=== PATIENT | male | born 1970 | race Caucasian/White ===

== ENCOUNTER → 2018-02-23 15:18 | Outpatient (CLI) | payer MEDICARE, SELFPAY ==
[2018-02-23 16:59] LABS: Hemoglobin A1C% w Est Avg Glu 8.8 % (4.0-6.0)
[2018-02-23 17:30] LABS: Alanine Aminotransferase 52 IU/L (21-72); Albumin 4.2 g/dL (3.5-5.0); Albumin Globulin Ratio 1.8 (1.0-2.8); Alkaline Phosphatase 50 U/L (38-126); Aspartate Aminotransferase 38 IU/L (17-59); BUN Creatinine Ratio 12.7 (6-22); Bilirubin Total 0.4 mg/dL (0.2-1.3); Blood Urea Nitrogen 14 mg/dL (9-20); Calcium 9.4 mg/dL (8.4-10.2); Carbon Dioxide 28 mmol/L (22-32); Chloride 100 mmol/L (98-107); Cholesterol 123 mg/dL (140-199); Estimated Glomerular Filt Rate > 60.0 mL/min (>60); Globulin 2.3 g/dL (1.7-4.1); Glucose 191 mg/dL (70-100); HDL Cholesterol 45 mg/dL (40-60); HEMOLYSIS < 15 (0-50); LDL Cholesterol Calculated 46 mg/dL (<100); Potassium 4.9 mmol/L (3.4-5.1); Sodium 138 mmol/L (137-145); Total Protein 6.5 g/dL (6.3-8.2); Triglycerides 158 mg/dL (35-150)
== END ==
PROVIDERS: Visit Provider Internal Medicine
DX: E10.65 Type 1 diabetes mellitus with hyperglycemia (principal); I10 Essential (primary) hypertension; G89.4 Chronic pain syndrome; E10.40 Type 1 diabetes mellitus with diabetic neuropathy, unspecified
CPT/HCPCS: 36415; 80053; 80061; 83036

== ENCOUNTER 2019-01-21 17:05 | Inpatient (IN) | payer MEDICARE, MEDICAID, SELFPAY ==
[2019-01-21] VITALS (12 sets, daily range): BP systolic 79–147; BP diastolic 42–71; PULSE 78–102; RESP 16–22; TEMP 35.9–37.2; O2SAT 98–100; BMI 20.9; BMI 20.2
[2019-01-21] MEDS: ONDANSETRON 4 MG/2 ML INJ IV ×2 (17:30→21:01)
[2019-01-21] MEDS: SODIUM CHLORIDE 0.9% 1,000 ML 1000 ML IV ×2 (17:31→18:35)
[2019-01-21 17:47] LABS: Add Manual Diff / Slide Review NO; Basophils Absolute Auto 0 /uL (0-100); Basophils Percent Auto 0.2 % (0-2); Eosinophils Absolute Auto 0 /uL (0-450); Hematocrit 40.1 % (41-53); Lymphocytes Absolute Auto 700 /uL (1100-4500); Lymphocytes Percent Auto 5.3 % (25-40); Mean Corpuscular HGB Conc 32.5 % (30-36); Mean Corpuscular Hemoglobin 31.3 PG (26-34); Mean Corpuscular Volume 96.2 fL (80-100); Monocytes Absolute Auto 900 /uL (0-900); Neutrophils Absolute Auto 11400 /uL (1500-7000); Neutrophils Percent Auto 87.5 % (50-75); Platelet Count 183 X10^3/uL (150-400); Red Blood Cell Count 4.17 X10^6/uL (4.5-5.9); Red Cell Distribution Width 13.7 % (11.6-14.8)
[2019-01-21] MEDS: LORazepam 2 MG/ML INJ 0.5 MG IV ×2 (17:49→22:40)
[2019-01-21 17:52] LABS: Prothrombin Time 12.1 SECONDS (10.1-12.7)
[2019-01-21 17:55] LABS: PTT Partial Thromboplastin Tim 27 SECONDS (26.4-36.2)
[2019-01-21 18:01] LABS: Alanine Aminotransferase 33 IU/L (21-72); Albumin 4.2 g/dL (3.5-5.0); Albumin Globulin Ratio 1.6 (1.0-2.8); Alkaline Phosphatase 55 U/L (38-126); Aspartate Aminotransferase 34 IU/L (17-59); BUN Creatinine Ratio 21.8 (6-22); Bilirubin Total 0.7 mg/dL (0.2-1.3); Blood Urea Nitrogen 24 mg/dL (9-20); Calcium 9.9 mg/dL (8.4-10.2); Carbon Dioxide 20 mmol/L (22-32); Chloride 104 mmol/L (98-107); Estimated Glomerular Filt Rate > 60.0 mL/min (>60); Globulin 2.6 g/dL (1.7-4.1); Glucose 300 mg/dL (70-100); HEMOLYSIS 45 (0-50); Potassium 4.6 mmol/L (3.4-5.1); Sodium 141 mmol/L (137-145); Total Protein 6.8 g/dL (6.3-8.2)
[2019-01-21 18:03] LABS: Lipase < 10 U/L (23-300)
--- NOTE | 2019-01-21 18:08 | ED_ITS ---
HPI - General Adult General Chief complaint: Diabetic Problem Stated complaint: type 1 diabetic complications Time Seen by Provider: 01/21/19 17:31 Source: patient and family Mode of arrival: ambulatory Limitations: no limitations History of Present Illness HPI narrative: Patient is a 48-year-old male. He is a type 1 diabetic. Patient was very unwilling to participate and much of the history taking. He stated t hat he was ?not in the mood ?to answer many of my questions. He did state that he was having abdominal pain and vomiting and dry heaving. Apparently this has been going on for the past couple days however again patient was unable to provide a specific time frame. He denies any chest pain or headaches. He stated that he has not been taking his insulin over the past couple days. Is unable to give a reason why other than he has not been feeling well. Unable to obtain much more of a history from the patient. Related Data Home Medications Medication Instructions Recorded Confirmed LISINOPRIL (Zestril / Prinivil) 0 PO *UK DOSE/FREQUENCY #0 06/04/07 insulin aspart U-100 [Novolog units SQ * UK DOSE/FREQUENCY #0 06/04/07 Flexpen U-100 Insulin] rosuvastatin 10 mg PO DAILY #0 06/04/07 01/21/19 insulin glargine [Lantus U-100 29 unit SUBCUT DAILY 01/21/19 01/21/19 Insulin] oxycodone 5 mg PO Q4-6H PRN 01/21/19 01/21/19 pregabalin [Lyrica] 150 mg PO BID 01/21/19 01/21/19 Allergies Allergy/AdvReac Type Severity Reaction Status Date / Time No Known Drug Allergies Allergy Verified 01/21/19 17:10 Review of Systems Constitutional Denies headache(s) ENT Ears, Nose, Mouth, and Throat: Denies headache(s) Cardiovascular Denies chest pain and Denies dyspnea Respiratory Denies dyspnea Gastrointestinal Gastrointestinal: Reports abdominal pain, Reports nausea and Reports vomiting Genitourinary Denies dysuria Musculoskeletal Denies arthralgias Integumentary/Breasts Denies rash Neurologic Denies headache(s) [facility] Medical History Absence, lung lobe (Acute) Cataract (Acute) Cervical spine fracture (Acute) Chronic constipation (Acute) Hyperlipidemia (Acute) Hypertension (Acute) 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) Retinopathy (Acute) Thoracic compression fracture (Acute) Type 1 diabetes (Acute) Social History household members: family Smoking Status: Former smoker alcohol intake: never Social History household members: family Smoking Status: Former smoker alcohol intake: never Exam Initial Vital Signs Initial Vital Signs: Vital Signs Temperature 96.7 F L 01/21/19 17:10 Pulse Rate 102 H 01/21/19 17:10 Respiratory Rate 22 01/21/19 17:10 Pulse Oximetry 98 01/21/19 17:10 Const General: ill appearing Nutritional Appearance: cachectic Orientation: alert, awake, oriented to person and oriented to place HENMT Head: normal to inspection and normocephalic Resp Effort & Inspection: normal respiratory effort Auscultation: clear to auscultation bilaterally Cardio Rate: regular rate Rhythm: regular rhythm Pulses: radial pulses present GI Inspection: non-distended Palpation: soft and tender (Diffusely tender) Skin Lesions: no lesions Rashes: no rashes Neuro General: alert and awake Cognition: normal cognition Extrem General: capillary refill normal and No edema Psych Appearance: disheveled Speech and Movement: agitated and restless Attitude: not cooperative Scores GCS Javier coma scale eye opening: Spontaneous [place] coma scale verbal response: Orientated Javier coma scale motor response: Obey commands [place] coma scale total score: 15 Course Orders Ordered: ED Orders 01/21/19 17:15 EKG-12 Lead Stat 01/21/19 17:35 Complete Blood Count AUTO DIFF Stat Comprehensive Metabolic Panel Stat Ketones (Beta-Hydroxybutyrate) Stat Lipase Stat Partial Thromboplastin Time Stat Procalcitonin Urgent Prothrombin Time INR Stat 01/21/19 17:44 Arterial Blood Gas Stat 01/21/19 17:56 Arterial Blood Gas Stat 01/21/19 18:00 Lactate (Lactic Acid) Stat Magnesium Stat Phosphorous Stat 01/21/19 18:43 CT abdomen pelvis w con Stat 01/21/19 21:41 Consult to Dietitian, Adult Routine Consult to Discharge Planning Routine 01/21/19 22:25 Consult to Physical Therapy Evaluate & Treat 01/21/19 23:06 Basic Metabolic Panel Urgent Magnesium Urgent Phosphorous Urgent 01/22/19 05:00 Basic Metabolic Panel Routine Complete Blood Count AUTO DIFF Routine Bisacodyl (Dulcolax) 10 mg VT DAILY PRN PRN Reason: Constipation Dextrose (D50w) 25 gm IV PRN PRN; Protocol PRN Reason: Hypoglycemia Docusate Sodium (Colace) 100 mg PO BID [facility] Enoxaparin Sodium (Lovenox) 40 mg SUBCUT DAILY [facility] Hydromorphone HCl (Dilaudid) 0.5 mg IV Q6H PRN PRN Reason: Pain, Moderate (4-6) Last Admin: 01/21/19 22:29 Dose: 0.5 mg Sodium Chloride (Normal Saline 0.9%) 1,000 mls @ 150 mls/hr IV CONT [facility] Last Infusion: 01/21/19 23:13 Dose: 0 mls/hr Admin: 01/21/19 22:41 Dose: 150 mls/hr Insulin Aspart (Novolog Flexpen) 0 unit SUBCUT ACHS [facility]; Protocol Last Admin: 01/21/19 22:26 Dose: 4 unit Insulin Glargine (Lantus Solostar (Pen)) 29 unit SUBCUT BEDTIME [facility] Last Admin: 01/21/19 22:43 Dose: 29 unit Lorazepam (Ativan) 0.5 mg IV Q4HR PRN PRN Reason: Nausea Last Admin: 01/21/19 22:40 Dose: 0.5 mg Metoclopramide HCl (Reglan) 10 mg IV Q6HR [facility] Last Admin: 01/22/19 00:15 Dose: 10 mg Naloxone HCl (Narcan) 0.2 mg IV Q2MIN PRN PRN Reason: Opiate Reversal Ondansetron HCl (Zofran) 4 mg IV Q8HR PRN PRN Reason: Nausea And Vomiting Pantoprazole Sodium (Protonix) 20 mg IV BID [facility] Last Admin: 01/21/19 22:25 Dose: 20 mg Discontinued Medications Hydromorphone HCl (Dilaudid) 1 mg IV NOW ONE Stop: 01/21/19 18:46 Last Admin: 01/21/19 18:49 Dose: 1 mg Sodium Chloride (Normal Saline 0.9%) 1,000 mls @ 1,000 mls/hr IV BOLUS ONE Stop: 01/21/19 18:28 Last Infusion: 01/21/19 18:23 Dose: 0 mls/hr Admin: 01/21/19 17:31 Dose: 1,000 mls/hr Sodium Chloride (Normal Saline 0.9%) 1,000 mls @ 1,000 mls/hr IV BOLUS ONE Stop: 01/21/19 19:31 Last Infusion: 01/21/19 19:17 Dose: 0 mls/hr Admin: 01/21/19 18:35 Dose: 1,000 mls/hr Sodium Chloride (Normal Saline 0.9%) 1,000 mls @ 125 mls/hr IV CONT JUSTIN Last Infusion: 01/21/19 21:51 Dose: 150 mls/hr Admin: 01/21/19 19:20 Dose: 125 mls/hr Insulin Glargine (Lantus Solostar (Pen)) 29 unit SUBCUT BEDTIME [facility] Lorazepam (Ativan) 0.5 mg IV NOW ONE Stop: 01/21/19 17:45 Last Admin: 01/21/19 17:49 Dose: 0.5 mg Metoclopramide HCl (Reglan) 10 mg IV NOW ONE Stop: 01/21/19 18:35 Last Admin: 01/21/19 18:39 Dose: 10 mg Metoclopramide HCl (Reglan) 10 mg IV Q8HR PRN PRN Reason: Nausea And Vomiting Ondansetron HCl (Zofran) 4 mg IV NOW ONE Stop: 01/21/19 17:30 Last Admin: 01/21/19 17:30 Dose: 4 mg Ondansetron HCl (Zofran) 4 mg IV NOW ONE Stop: 01/21/19 21:00 Last Admin: 01/21/19 21:01 Dose: 4 mg Vital Signs - 8 hr 01/21/19 18:00 01/21/19 19:00 01/21/19 19:30 Temperature Pulse Rate 79 83 84 Respiratory Rate 19 16 16 Blood Pressure Blood Pressure [Right Arm] 79/64 L 142/71 H 117/42 L Pulse Oximetry 100 100 100 01/21/19 20:00 01/21/19 20:49 01/21/19 21:00 Temperature Pulse Rate 86 94 H 90 Respiratory Rate 17 18 18 Blood Pressure Blood Pressure [Right Arm] 114/45 L 111/46 L 122/47 L Pulse Oximetry 100 98 100 01/21/19 21:50 01/21/19 21:52 01/21/19 23:10 Temperature 98.0 F 99.0 F Pulse Rate 86 87 Respiratory Rate 20 18 Blood Pressure 105/57 L 123/53 L Blood Pressure [Right Arm] Pulse Oximetry 98 98 100 01/21/19 23:42 Temperature Pulse Rate Respiratory Rate Blood Pressure Blood Pressure [Right Arm] Pulse Oximetry 100 Medical Decision Making Lab Data Lab results reviewed: Yes I reviewed the patient's lab results. Result diagrams: 01/21/19 17:35 01/21/19 23:06 Lab Results 01/21/19 01/21/19 01/21/19 Range/Units 17:35 17:35 17:35 WBC 13.0 H (4.5-11.0) X10^3/uL RBC 4.17 L (4.5-5.9) X10^6/uL Hgb 13.0 L (13.5-17.5) g/dL Hct 40.1 L (41-53) % MCV 96.2 (80-100) fL MCH 31.3 (26-34) PG MCHC 32.5 (30-36) % RDW 13.7 (11.6-14.8) % Plt Count 183 (150-400) X10^3/uL Neut % (Auto) 87.5 H (50-75) % Lymph % (Auto) 5.3 L (25-40) % Newton % (Auto) 7.0 (3-14) % Eos % (Auto) 0.0 L (2-4) % Baso % (Auto) 0.2 (0-2) % Neut # (Auto) 54646 H (2834-3624) /uL Lymph # (Auto) 700 L (8038-0767) /uL Newton # (Auto) 900 (0-900) /uL Eos # (Auto) 0 (0-450) /uL Baso # (Auto) 0 (0-100) /uL PT 12.1 (10.1-12.7) SECONDS INR 1.0 (0.9-1.3) APTT 27 (26.4-36.2) SECONDS ABG pH (7.35-7.45) ABG pCO2 (35-45) mmHg ABG pO2 (80-100) mmHg ABG HCO3 (22-26) mmol/L ABG Total CO2 (21-31) mmol/L ABG O2 Saturation (95-100) % ABG Base Excess (-2-2) mmol/L FiO2 Sodium 141 (137-145) mmol/L Potassium 4.6 (3.4-5.1) mmol/L Chloride 104 (98-107) mmol/L Carbon Dioxide 20 L (22-32) mmol/L BUN 24 H (9-20) mg/dL Creatinine 1.10 (0.66-1.25) mg/dL Estimated GFR > 60.0 (>60) mL/min BUN/Creatinine Ratio 21.8 (6-22) Glucose 300 H (70-100) mg/dL Lactate (0.7-2.1) mmol/L Calcium 9.9 (8.4-10.2) mg/dL Phosphorus (2.5-4.5) mg/dL Magnesium (1.6-2.3) mg/dL Total Bilirubin 0.7 (0.2-1.3) mg/dL AST 34 (17-59) IU/L ALT 33 (21-72) IU/L Alkaline Phosphatase 55 (38-126) U/L Total Protein 6.8 (6.3-8.2) g/dL Albumin 4.2 (3.5-5.0) g/dL Globulin 2.6 (1.7-4.1) g/dL Albumin/Globulin Ratio 1.6 (1.0-2.8) Lipase < 10 L (23-300) U/L Procalcitonin (<0.5) ng/mL Ketones (<0.27) mmol/L 01/21/19 01/21/19 01/21/19 Range/Units 17:35 17:35 17:56 WBC (4.5-11.0) X10^3/uL RBC (4.5-5.9) X10^6/uL Hgb (13.5-17.5) g/dL Hct (41-53) % MCV (80-100) fL MCH (26-34) PG MCHC (30-36) % RDW (11.6-14.8) % Plt Count (150-400) X10^3/uL Neut % (Auto) (50-75) % Lymph % (Auto) (25-40) % [place] % (Auto) (3-14) % Eos % (Auto) (2-4) % Baso % (Auto) (0-2) % Neut # (Auto) (2763-6527) /uL Lymph # (Auto) (8699-0425) /uL Newton # (Auto) (0-900) /uL Eos # (Auto) (0-450) /uL Baso # (Auto) (0-100) /uL PT (10.1-12.7) SECONDS INR (0.9-1.3) APTT (26.4-36.2) SECONDS ABG pH 7.39 (7.35-7.45) ABG pCO2 28.5 L (35-45) mmHg ABG pO2 107 H (80-100) mmHg ABG HCO3 17 L (22-26) mmol/L ABG Total CO2 18 L (21-31) mmol/L ABG O2 Saturation 98 (95-100) % ABG Base Excess -8.0 L (-2-2) mmol/L FiO2 21 Sodium (137-145) mmol/L Potassium (3.4-5.1) mmol/L Chloride (98-107) mmol/L Carbon Dioxide (22-32) mmol/L BUN (9-20) mg/dL Creatinine (0.66-1.25) mg/dL Estimated GFR (>60) mL/min BUN/Creatinine Ratio (6-22) Glucose (70-100) mg/dL Lactate (0.7-2.1) mmol/L Calcium (8.4-10.2) mg/dL Phosphorus (2.5-4.5) mg/dL Magnesium (1.6-2.3) mg/dL Total Bilirubin (0.2-1.3) mg/dL AST (17-59) IU/L ALT (21-72) IU/L Alkaline Phosphatase (38-126) U/L Total Protein (6.3-8.2) g/dL Albumin (3.5-5.0) g/dL Globulin (1.7-4.1) g/dL Albumin/Globulin Ratio (1.0-2.8) Lipase (23-300) U/L Procalcitonin 0.98 H (<0.5) ng/mL Ketones 3.62 H (<0.27) mmol/L 01/21/19 01/21/19 01/21/19 Range/Units 18:00 18:00 20:40 WBC (4.5-11.0) X10^3/uL RBC (4.5-5.9) X10^6/uL Hgb (13.5-17.5) g/dL Hct (41-53) % MCV (80-100) fL MCH (26-34) PG MCHC (30-36) % RDW (11.6-14.8) % Plt Count (150-400) X10^3/uL Neut % (Auto) (50-75) % Lymph % (Auto) (25-40) % Newton % (Auto) (3-14) % Eos % (Auto) (2-4) % Baso % (Auto) (0-2) % Neut # (Auto) (8452-0183) /uL Lymph # (Auto) (8847-2878) /uL Newton # (Auto) (0-900) /uL Eos # (Auto) (0-450) /uL Baso # (Auto) (0-100) /uL PT (10.1-12.7) SECONDS INR (0.9-1.3) APTT (26.4-36.2) SECONDS ABG pH (7.35-7.45) ABG pCO2 (35-45) mmHg ABG pO2 (80-100) mmHg ABG HCO3 (22-26) mmol/L ABG Total CO2 (21-31) mmol/L ABG O2 Saturation (95-100) % ABG Base Excess (-2-2) mmol/L FiO2 Sodium (137-145) mmol/L Potassium (3.4-5.1) mmol/L Chloride (98-107) mmol/L Carbon Dioxide (22-32) mmol/L BUN (9-20) mg/dL Creatinine (0.66-1.25) mg/dL Estimated GFR (>60) mL/min BUN/Creatinine Ratio (6-22) Glucose (70-100) mg/dL Lactate 3.5 H 1.6 (0.7-2.1) mmol/L Calcium (8.4-10.2) mg/dL Phosphorus 2.8 (2.5-4.5) mg/dL Magnesium 1.6 (1.6-2.3) mg/dL Total Bilirubin (0.2-1.3) mg/dL AST (17-59) IU/L ALT (21-72) IU/L Alkaline Phosphatase (38-126) U/L Total Protein (6.3-8.2) g/dL Albumin (3.5-5.0) g/dL Globulin (1.7-4.1) g/dL Albumin/Globulin Ratio (1.0-2.8) Lipase (23-300) U/L Procalcitonin (<0.5) ng/mL Ketones (<0.27) mmol/L 01/21/ Range/Units 23:06 WBC (4.5-11.0) X10^3/uL RBC (4.5-5.9) X10^6/uL Hgb (13.5-17.5) g/dL Hct (41-53) % MCV (80-100) fL MCH (26-34) PG MCHC (30-36) % RDW (11.6-14.8) % Plt Count (150-400) X10^3/uL Neut % (Auto) (50-75) % Lymph % (Auto) (25-40) % Newton % (Auto) (3-14) % Eos % (Auto) (2-4) % Baso % (Auto) (0-2) % Neut # (Auto) (2849-1204) /uL Lymph # (Auto) (3719-2941) /uL Newton # (Auto) (0-900) /uL Eos # (Auto) (0-450) /uL Baso # (Auto) (0-100) /uL PT (10.1-12.7) SECONDS INR (0.9-1.3) APTT (26.4-36.2) SECONDS ABG pH (7.35-7.45) ABG pCO2 (35-45) mmHg ABG pO2 (80-100) mmHg ABG HCO3 (22-26) mmol/L ABG Total CO2 (21-31) mmol/L ABG O2 Saturation (95-100) % ABG Base Excess (-2-2) mmol/L FiO2 Sodium 141 (137-145) mmol/L Potassium 4.4 (3.4-5.1) mmol/L Chloride 107 (98-107) mmol/L Carbon Dioxide 17 L (22-32) mmol/L BUN 23 H (9-20) mg/dL Creatinine 1.00 (0.66-1.25) mg/dL Estimated GFR > 60.0 (>60) mL/min BUN/Creatinine Ratio 23.0 H (6-22) Glucose 351 H (70-100) mg/dL Lactate (0.7-2.1) mmol/L Calcium 9.1 (8.4-10.2) mg/dL Phosphorus 3.3 (2.5-4.5) mg/dL Magnesium 1.5 L (1.6-2.3) mg/dL Total Bilirubin (0.2-1.3) mg/dL AST (17-59) IU/L ALT (21-72) IU/L Alkaline Phosphatase (38-126) U/L Total Protein (6.3-8.2) g/dL Albumin (3.5-5.0) g/dL Globulin (1.7-4.1) g/dL Albumin/Globulin Ratio (1.0-2.8) Lipase (23-300) U/L Procalcitonin (<0.5) ng/mL Ketones (<0.27) mmol/L Point of Care Testing Glucose POC 279 Urine Dip Bedside Urine Glucose 500 mg/dl Bedside Urine Bilirubin - Negative Bedside Urine Ketone +++ 80 Urine Specific [place] 1.020 Bedside Urine Occult Blood +/- Bedside Urine pH 5.5 Bedside Urine Protein - Negative Bedside Urine Urobilinogen +/- 1mg Bedside Urine Nitrite - Negative Bedside Urine Leukocytes - Negative Esterase Point of care testing: Point of Care Testing Glucose POC 279 Urine Dip Bedside Urine Glucose 500 mg/dl Bedside Urine Bilirubin - Negative Bedside Urine Ketone +++ 80 Urine Specific [place] 1.020 Bedside Urine Occult Blood +/- Bedside Urine pH 5.5 Bedside Urine Protein - Negative Bedside Urine Urobilinogen +/- 1mg Bedside Urine Nitrite - Negative Bedside Urine Leukocytes - Negative Esterase Imaging Data CT scan - abdomen: Radiologist's impression: in the mood ? MDM Narrative Medical decision making narrative: Patient with diffuse abdominal pain. The CT scan showed no acute pathology. Patient is not acidotic on the ABG. Does have ketones in is hyperglycemic. Was given multiple doses of nausea medication here in the ER. Has an anion gap of 17. His blood sugar did improve with just fluids. He was not given any insulin here in the ER. Upon further questioning with his parents were bedside it does appear that he has been on long-standing opioids and potentially has not had for the past couple days. His symptoms could potentially be opioid withdrawal. Also appears that he has not had marijuana in the past couple days which she normally smokes what sounds like on a regular basis. There is some question is whether not he has had a history of gastroparesis in the past. Do feel given his social situation and his presentation today that if he was discharged on oral nausea medication that he would return in cash DKA. I do feel that admission to the hospital for fluids and symptom control as needed. Discussed the case with RAQUEL Castle the night hospitalist will admit for further evaluation and treatment. Discussed the admission with the family. They expressed understanding and agreement. Discharge Plan Departure Patient Disposition: Admitted as Observation Clinical Impression: Hyperglycemia, Ketosis Abdominal pain Qualifiers: Abdominal location: generalized Qualified Code(s): R10.84 - Generalized abdominal pain Vomiting Qualifiers: Vomiting type: unspecified Vomiting Intractability: unspecified Nausea presence: with nausea Qualified Code(s): R11.2 - Nausea with vomiting, unspecified Discharge Date/Time: 01/21/19 21:34 Interventions: ED Discharge Assessment Last Done: 01/21/19 21:34 Admit Date/Time: 01/21/19 21:29 Admit Provider: Storm Castle
[2019-01-21 18:13] LABS: Fractionated Inspired Oxygen 21; HCO3 ABG 17 mmol/L (22-26); Oxygen Saturation ABG 98 % (95-100); PCO2 ABG 28.5 mmHg (35-45); PO2 ABG 107 mmHg (80-100); TCO2 ABG 18 mmol/L (21-31); pH ABG 7.39 (7.35-7.45)
--- NOTE | 2019-01-21 18:15 | RT ---
G drawn without complications, and hand delivered to Dr. Sun at 0080
[2019-01-21 18:17] LABS: Lactate (Lactic Acid) 3.5 mmol/L (0.7-2.1)
[2019-01-21 18:18] LABS: Ketones (Beta-Hydroxybutyrate) 3.62 mmol/L (<0.27)
[2019-01-21 18:19] LABS: Magnesium 1.6 mg/dL (1.6-2.3); Phosphorous 2.8 mg/dL (2.5-4.5)
[2019-01-21] MEDS: METOCLOPRAMIDE 10 MG/2 ML INJ IV (18:39)
--- NOTE | 2019-01-21 18:43 | DI.CT.S_ITS ---
PROCEDURE: CT ABDOMEN PELVIS W CON INDICATIONS: generalized abd pain TECHNIQUE: After the administration of intravenous contrast, 5 mm thick sections acquired from the diaphragm to the symphysis. 5 mm coronal and sagittal reformats were acquired. For radiation dose reduction, the following was used: automated exposure control, adjustment of mA and/or kV according to patient size. COMPARISON: [facility], , CHEST 2 VIEW, 06/05/2007, 18:02. FINDINGS: Image quality: Excellent. ABDOMEN: Lung bases: Postoperative changes are present at the right lung base. The lung bases are otherwise clear. Solid organs: Liver is normal in size and enhancement. Gallbladder is unremarkable. Biliary system is non dilated. Pancreas enhances normally. Spleen is normal in size and enhancement. No adrenal nodules. Kidneys demonstrate normal size and enhancement, without hydronephrosis. Peritoneum and bowel: Bowel loops demonstrate normal wall thickness and caliber. The appendix is thin walled and gas filled. No free fluid or air. Nodes and vessels: No retroperitoneal or mesenteric adenopathy by size criteria. Aorta and inferior vena cava are normal in size. There are scattered atheromatous calcifications throughout the aorta and iliac arteries bilaterally. Miscellaneous: No ventral hernias. PELVIS: Genitourinary: Bladder wall thickness is normal. Miscellaneous: No inguinal hernias or adenopathy. Bones: No suspicious bony lesions. Compression deformities are present at T11 and T12 with 38 and 57% vertebral body height loss, respectively. These are unchanged when compared to plain film dated 06/05/07. IMPRESSION: 1. No acute intra-abdominal findings. Normal appendix. 2. Compression deformities at T11 and T12 Dictated by: Britany Childs M.D. on 01/21/2019 at 19:58 Approved by: Britany Childs M.D. on 01/21/2019 at 20:04
[2019-01-21] MEDS: HYDROMORPHONE 1 MG INJ IV (18:49)
[2019-01-21] MEDS: SODIUM CHLORIDE 0.9% 1,000 ML 125 ML IV (19:20)
[2019-01-21 20:02] LABS: Reflexed Lactate in 2 Hours Y
[2019-01-21 20:58] LABS: Lactate 2HR (Lactic Acid Rflx) 1.6 mmol/L (0.7-2.1)
--- NOTE | 2019-01-21 21:45 | PC.ADMIT ---
Addendum entered by Dali Dunlap R.N. 01/21/19 23:01: 2145 Admitted to from ER. Transferred via stretcher, pivot transfer to bed. A/O, abdominal pain /10. Frequent dry heaves, scant emesis. Reports this has been going on for a couple days. Unable to remember all medication doses, mom is supposed to call to verify. Oriented to room/call light. SCDs applied. IV to left hand saline locked/flushes well. IV to RAC infusing w/o complications. Original Note: 2144 Admission Note: Pt to acute care from ER. Transferred via NO [id number] [facility] The patient,Mahesh Chow,48 y/o, was given written information regarding hospital policies, unit procedures and contact persons. Patient's smoking status: Former smoker. Vital Signs - 8 hr 01/21/19 17:10 01/21/19 17:43 01/21/19 18:00 Temperature 96.7 F L Pulse Rate 102 H 78 79 Respiratory Rate 22 18 19 Blood Pressure Blood Pressure [Right Arm] 147/58 H 79/64 L Pulse Oximetry 98 100 100 01/21/19 19:00 01/21/19 19:30 01/21/19 20:00 Temperature Pulse Rate 83 84 86 Respiratory Rate 16 16 17 Blood Pressure Blood Pressure [Right Arm] 142/71 H 117/42 L 114/45 L Pulse Oximetry 100 100 100 01/21/19 20:49 01/21/19 21:00 01/21/19 21:50 Temperature 98.0 F Pulse Rate 94 H 90 86 Respiratory Rate 18 18 20 Blood Pressure 105/57 L Blood Pressure [Right Arm] 111/46 L 122/47 L Pulse Oximetry 98 100 98 01/21/19 21:52 Temperature Pulse Rate Respiratory Rate Blood Pressure Blood Pressure [Right Arm] Pulse Oximetry 98
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
[2019-01-21] MEDS: PANTOPRAZOLE 40 MG VIAL 20 MG IV (22:25)
[2019-01-21] MEDS: INSULIN ASPART 100 UNIT/ML INSULN PEN SUBCUT (22:26)
[2019-01-21] MEDS: HYDROMORPHONE 0.5 MG INJ IV (22:29)
[2019-01-21 22:33] LABS: Procalcitonin 0.98 ng/mL (<0.5)
[2019-01-21] MEDS: SODIUM CHLORIDE 0.9% 1,000 ML 150 ML IV (22:41)
[2019-01-21] MEDS: INSULIN GLARGINE 100 UNIT/ML 3ML PEN 29 UNIT SUBCUT (22:43)
--- NOTE | 2019-01-21 23:03 | PC.NURSE ---
Addendum entered by Dali Dunlap R.N. 01/21/19 23:27: Mom able to clarify, lyrica/statin meds. Pt/mom not sure if pt is still taking Lisinopril, and unable to report what sliding scale pt uses for novolog insulin. Pt also normally wears dentures, but they are not with the patient. Original Note: Medicated with IV dilaudid for pain and IV ativan for nausea/vomiting. Increased rate of current IV bag per MD orders. Blood sugar 358, lantus and sliding scale given. Parents have left for the night. Anticipating call to verify home meds. Bed alarm on.
[2019-01-21 23:26] LABS: Blood Urea Nitrogen 23 mg/dL (9-20); Calcium 9.1 mg/dL (8.4-10.2); Carbon Dioxide 17 mmol/L (22-32); Chloride 107 mmol/L (98-107); Estimated Glomerular Filt Rate > 60.0 mL/min (>60); Glucose 351 mg/dL (70-100); HEMOLYSIS < 15 (0-50); Magnesium 1.5 mg/dL (1.6-2.3); Phosphorous 3.3 mg/dL (2.5-4.5); Potassium 4.4 mmol/L (3.4-5.1); Sodium 141 mmol/L (137-145)
[2019-01-22] VITALS (8 sets, daily range): BP systolic 100–127; BP diastolic 49–62; PULSE 59–76; RESP 16–18; TEMP 36.8–37.6; O2SAT 97–99
[2019-01-22] MEDS: METOCLOPRAMIDE 10 MG/2 ML INJ IV ×5 (00:15→23:47)
[2019-01-22] MEDS: INSULIN ASPART 100 UNIT/ML INSULN PEN SUBCUT ×2 (03:46→22:15)
[2019-01-22] MEDS: MAGNESIUM SULFATE 2 GM/50 ML PIGGYBACK IV (03:53)
[2019-01-22 05:30] LABS: Add Manual Diff / Slide Review NO; Basophils Absolute Auto 100 /uL (0-100); Basophils Percent Auto 0.5 % (0-2); Eosinophils Absolute Auto 0 /uL (0-450); Hematocrit 34.2 % (41-53); Hemoglobin 11.3 g/dL (13.5-17.5); Lymphocytes Absolute Auto 1500 /uL (1100-4500); Lymphocytes Percent Auto 12.5 % (25-40); Mean Corpuscular HGB Conc 33.1 % (30-36); Mean Corpuscular Hemoglobin 31.4 PG (26-34); Mean Corpuscular Volume 94.8 fL (80-100); Monocytes Absolute Auto 1400 /uL (0-900); Monocytes Percent Auto 11.6 % (3-14); Neutrophils Absolute Auto 8900 /uL (1500-7000); Neutrophils Percent Auto 75.4 % (50-75); Platelet Count 147 X10^3/uL (150-400); Red Cell Distribution Width 13.4 % (11.6-14.8); White Blood Cell Count 11.8 X10^3/uL (4.5-11.0)
[2019-01-22 05:41] LABS: BUN Creatinine Ratio 25.6 (6-22); Blood Urea Nitrogen 23 mg/dL (9-20); Calcium 8.8 mg/dL (8.4-10.2); Carbon Dioxide 24 mmol/L (22-32); Chloride 112 mmol/L (98-107); Estimated Glomerular Filt Rate > 60.0 mL/min (>60); Glucose 139 mg/dL (70-100); HEMOLYSIS 25 (0-50); Potassium 3.9 mmol/L (3.4-5.1); Sodium 142 mmol/L (137-145)
[2019-01-22] MEDS: HYDROMORPHONE 0.5 MG INJ IV (08:05)
--- NOTE | 2019-01-22 10:00 | PT.IPTN ---
Current Diagnoses Nausea with vomiting, unspecified (01/22/19) Physical Therapy Treatment Note Notes PT with BG Whatley, RN actively addressing, will hold PT eval at this time and try again later today or tomorrow.
[2019-01-22] MEDS: ENOXAPARIN 40 MG/0.4 ML SYRINGE SUBCUT (10:13)
[2019-01-22] MEDS: PANTOPRAZOLE 40 MG VIAL 20 MG IV ×2 (10:14→22:14)
[2019-01-22] MEDS: DEXTROSE 50 % IN WATER 25 GM/50 ML SYRINGE IV (10:24)
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
--- NOTE | 2019-01-22 11:44 | P.PN_ITS ---
Subjective Date Patient Seen: 01/22/19 Interval history: The patient is a 48-year-old male who was admitted to the hospital for intractable nausea vomiting. He reports that overnight his nausea vomiting has improved. He has no abdominal pain at this time. Patient is hungry and would like to try to advance his diet. He was hypoglycemic this morning with a blood sugar of 34 point he was given 1 amp of D50 and his blood sugar is now 140. Patient is sitting up in bed and has no further complaints. Exam Vital Signs (past 8 hours): - 01/22/19 04:30 01/22/19 07:55 Temperature 99.1 F 98.9 F Pulse Rate 71 71 Respiratory Rate 18 16 Blood Pressure 101/52 L 111/49 L Pulse Oximetry 97 99 Oxygen Delivery Method Room Air Narrative Exam Narrative: Ill appearing disheveled male Lungs: Clear to auscultation Cardiac exam: Regular rate and rhythm normal S1-S2 Abdomen: Soft nontender nondistended Extremities: No edema Objective Labs Result Diagrams: 01/22/19 05:15 01/22/19 05:15 Labs: Laboratory Results - last 24 hr 01/21/19 01/21/19 01/21/19 17:35 17:35 17:35 WBC 13.0 H RBC 4.17 L Hgb 13.0 L Hct 40.1 L MCV 96.2 MCH 31.3 MCHC 32.5 RDW 13.7 Plt Count 183 Neut % (Auto) 87.5 H Lymph % (Auto) 5.3 L [place] % (Auto) 7.0 Eos % (Auto) 0.0 L Baso % (Auto) 0.2 Neut # (Auto) 94132 H Lymph # (Auto) 700 L [place] # (Auto) 900 Eos # (Auto) 0 Baso # (Auto) 0 PT 12.1 INR 1.0 APTT 27 ABG pH ABG pCO2 ABG pO2 ABG HCO3 ABG Total CO2 ABG O2 Saturation ABG Base Excess FiO2 Sodium 141 Potassium 4.6 Chloride 104 Carbon Dioxide 20 L BUN 24 H Creatinine 1.10 Estimated GFR > 60.0 BUN/Creatinine Ratio 21.8 Glucose 300 H Lactate Calcium 9.9 Phosphorus Magnesium Total Bilirubin 0.7 AST 34 ALT 33 Alkaline Phosphatase 55 Total Protein 6.8 Albumin 4.2 Globulin 2.6 Albumin/Globulin Ratio 1.6 Lipase < 10 L Procalcitonin Ketones 01/21/19 01/21/19 01/21/19 17:35 17:35 17:56 WBC RBC Hgb Hct MCV MCH MCHC RDW Plt Count Neut % (Auto) Lymph % (Auto) [place] % (Auto) Eos % (Auto) Baso % (Auto) Neut # (Auto) Lymph # (Auto) [place] # (Auto) Eos # (Auto) Baso # (Auto) PT INR APTT ABG pH 7.39 ABG pCO2 28.5 L ABG pO2 107 H ABG HCO3 17 L ABG Total CO2 18 L ABG O2 Saturation 98 ABG Base Excess -8.0 L FiO2 21 Sodium Potassium Chloride Carbon Dioxide BUN Creatinine Estimated GFR BUN/Creatinine Ratio Glucose Lactate Calcium Phosphorus Magnesium Total Bilirubin AST ALT Alkaline Phosphatase Total Protein Albumin Globulin Albumin/Globulin Ratio Lipase Procalcitonin 0.98 H Ketones 3.62 H 01/21/19 01/21/19 01/21/19 18:00 18:00 20:40 WBC RBC Hgb Hct MCV MCH MCHC RDW Plt Count Neut % (Auto) Lymph % (Auto) [place] % (Auto) Eos % (Auto) Baso % (Auto) Neut # (Auto) Lymph # (Auto) [place] # (Auto) Eos # (Auto) Baso # (Auto) PT INR APTT ABG pH ABG pCO2 ABG pO2 ABG HCO3 ABG Total CO2 ABG O2 Saturation ABG Base Excess FiO2 Sodium Potassium Chloride Carbon Dioxide BUN Creatinine Estimated GFR BUN/Creatinine Ratio Glucose Lactate 3.5 H 1.6 Calcium Phosphorus 2.8 Magnesium 1.6 Total Bilirubin AST ALT Alkaline Phosphatase Total Protein Albumin Globulin Albumin/Globulin Ratio Lipase Procalcitonin Ketones 01/21/19 01/22/19 01/22/19 23:06 05:15 05:15 WBC 11.8 H RBC 3.60 L Hgb 11.3 L Hct 34.2 L MCV 94.8 MCH 31.4 MCHC 33.1 RDW 13.4 Plt Count 147 L Neut % (Auto) 75.4 H Lymph % (Auto) 12.5 L [place] % (Auto) 11.6 Eos % (Auto) 0.0 L Baso % (Auto) 0.5 Neut # (Auto) 8900 H Lymph # (Auto) 1500 [place] # (Auto) 1400 H Eos # (Auto) 0 Baso # (Auto) 100 PT INR APTT ABG pH ABG pCO2 ABG pO2 ABG HCO3 ABG Total CO2 ABG O2 Saturation ABG Base Excess FiO2 Sodium 141 142 Potassium 4.4 3.9 Chloride 107 112 H Carbon Dioxide 17 L 24 BUN 23 H 23 H Creatinine 1.00 0.90 Estimated GFR > 60.0 > 60.0 BUN/Creatinine Ratio 23.0 H 25.6 H Glucose 351 H 139 H D Lactate Calcium 9.1 8.8 Phosphorus 3.3 Magnesium 1.5 L Total Bilirubin AST ALT Alkaline Phosphatase Total Protein Albumin Globulin Albumin/Globulin Ratio Lipase Procalcitonin Ketones 01/22/19 05:15 WBC RBC Hgb Hct MCV MCH MCHC RDW Plt Count Neut % (Auto) Lymph % (Auto) [place] % (Auto) Eos % (Auto) Baso % (Auto) Neut # (Auto) Lymph # (Auto) [place] # (Auto) Eos # (Auto) Baso # (Auto) PT INR APTT ABG pH ABG pCO2 ABG pO2 ABG HCO3 ABG Total CO2 ABG O2 Saturation ABG Base Excess FiO2 Sodium Potassium Chloride Carbon Dioxide BUN Creatinine Estimated GFR BUN/Creatinine Ratio Glucose Lactate Calcium Phosphorus Magnesium Total Bilirubin AST ALT Alkaline Phosphatase Total Protein Albumin Globulin Albumin/Globulin Ratio Lipase Procalcitonin 0.90 H Ketones Assessment & Plan Assessment & Plan narrative: 1. Probable diabetic gastroparesis. Will continue with IV hydration, Reglan, pain medications, and small frequent meals per the patient is hungry today. Will advance his diet as tolerated. 2. Type 1 diabetes patient did have some hypoglycemia overnight his insulin is currently at 29 units of Lantus which is his usual will monitor his oral intake today and adjust insulin accordingly if he is unable to manage significant oral intake 3. Hypertension, chronic continue usual home medication 4. Hyperlipidemia, chronic continue usual medication 5. Diabetic polyneuropathy, continue Lyrica Plan anticipate the patient will be able to be discharged home once he can tolerate oral intake without further nausea vomiting or abdominal pain.
[2019-01-22] MEDS: DEXTROSE 5%-0.45NS W/KCL 20MEQ 1,000 ML 84 MEQ IV (13:02)
--- NOTE | 2019-01-22 15:01 | PT.IPTN ---
Current Diagnoses Nausea with vomiting, unspecified (01/22/19) Physical Therapy Treatment Note Patient Comments Pt sleeping, wanting to continue sleeping, declines to participate at this time. Will try again tomorrow.
[2019-01-22 16:32] LABS: Hemoglobin A1C% w Est Avg Glu 7.7 % (4.0-6.0)
[2019-01-22] MEDS: INSULIN GLARGINE 100 UNIT/ML 3ML PEN 15 UNIT SUBCUT (22:16)
[2019-01-22] MEDS: SODIUM CHLORIDE 0.9% 1,000 ML 50 ML IV (23:23)
[2019-01-23 00:08] VITALS: O2SAT 98
[2019-01-23 04:00] VITALS: BP 138/58; PULSE 54; RESP 18; TEMP 37.3; O2SAT 99
--- NOTE | 2019-01-23 05:26 | PC.NURSE ---
Shift note: Educated pt on use and purpose of bed alarm and fall risk status d/t pt is non-compliant with call light despite proper teaching, demonstration, and teach back. Pt reports that he's use to being independent, explained to pt that d/t his bilateral neuropathy and weakness that he needs assistance and monitoring when he wants to ambulate. Pt reports that he can't get comfortable and offered to move him to bedside chair to which pt accepted. Chair alarm in place d/t safety concerns. Will continue to monitor for safety.
[2019-01-23] MEDS: METOCLOPRAMIDE 10 MG/2 ML INJ IV (06:05)
[2019-01-23] MEDS: PANTOPRAZOLE 20 MG TABLET PO (06:15)
[2019-01-23 07:45] VITALS: BP 142/68; PULSE 57; RESP 18; TEMP 36.4; O2SAT 98
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
[2019-01-23] MEDS: PREGABALIN 75 MG CAPSULE 150 MG PO (09:20)
[2019-01-23] MEDS: ENOXAPARIN 40 MG/0.4 ML SYRINGE SUBCUT (09:20)
[2019-01-23 09:44] VITALS: O2SAT 98
--- NOTE | 2019-01-23 09:47 | PC.NURSE ---
Pt is A&Ox3, denies discomfort. into patient and discharged him. BS stable this morning and in the 80s, O insulin needed. IV taken out and pt tolerated well.
--- NOTE | 2019-01-23 14:00 | CM.DPC ---
DCP: continued: Case discussed in Team Rounds. Dr. Galindo stated that pt was medically ready for d/c and also stated strong desire to go home. He was up independently in room, took a shower and was taken home by his parents about 1030.
== END 2019-01-23 10:28 | disposition home or self-care (01) | DRG 74 ==
LOC: ED 20:45 → AC 21:31
PROVIDERS: Emergency Medicine; Admitting Provider Nurse Practitioner Adult Health; Emergency Provider Emergency Medicine; PCP Internal Medicine; Visit Provider Nurse Practitioner Adult Health
DX: E10.43 Type 1 diabetes mellitus with diabetic autonomic (poly)neuropathy (principal); E10.10 Type 1 diabetes mellitus with ketoacidosis without coma; E10.319 Type 1 diabetes mellitus with unspecified diabetic retinopathy without macular edema; K31.84 Gastroparesis; E10.649 Type 1 diabetes mellitus with hypoglycemia without coma
CPT/HCPCS: 36415; 36600; 74177; 80048; 80053; 81003; 82009; 82805; 82962; 83036; 83605; 83690; 83735; 84100; 84145; 85025; 85610; 85730; 93005; 96361; 96374; 96375; 96376; 99285; G0378; C9113; J1170; J1650; J2060; J2405; J2765; Q9967

== ENCOUNTER 2019-01-25 02:43 | Emergency (ER) | payer MEDICARE, MEDICAID, SELFPAY ==
[2019-01-21 21:50] VITALS: BMI 20.2
--- NOTE | 2019-01-25 02:52 | ED_ITS ---
HPI - Abdominal Pain General Chief Complaint: Abdominal Pain Stated Complaint: nausea dry heaving abdominal pain Time Seen by Provider: 01/25/19 02:49 Source: patient Mode of arrival: ambulatory Limitations: no limitations History of Present Illness HPI narrative: Patient is a 48-year-old male is an insulin-dependent diabetic. I evaluated him here in the emergency department several days ago and admitted him for gastroparesis and decompensated diabetes and vomiting. Patient was discharged from the hospital couple days later. He returns today for a return of his abdominal pain and vomiting. He states this is the same abdominal pain he had a couple days ago. He states he has been taking his blood sugars at home and has been using his insulin. He states that this morning he had a breakfast of a eggs and sausage and hash browns that were all clipped in grease. Has been vomiting throughout today. He states that he was told by the inpatient provider is that he most likely has gastroparesis. He has not talked this primary doctor since he was discharged from the hospital. He stated that he came in for nausea medication, pain medication and acid medication Related Data Home Medications Medication Instructions Recorded Confirmed LISINOPRIL (Zestril / Prinivil) 0 PO *UK DOSE/FREQUENCY #0 06/04/07 Novolog Flexpen U-100 Insulin units SQ * DOSE/FREQUENCY #0 06/04/07 rosuvastatin 10 mg PO DAILY #0 06/04/07 01/21/19 Lantus U-100 Insulin 29 unit SUBCUT DAILY 01/21/19 01/21/19 Lyrica 150 mg PO BID 01/21/19 01/21/19 oxycodone 5 mg PO Q4-6H PRN 01/21/19 01/21/19 Previous Rx's Medication Instructions Recorded metoclopramide HCl [Reglan] 10 mg PO QAC #30 tab 01/23/19 ranitidine HCl [Zantac] 150 mg PO BID #60 tab 01/25/19 Allergies Allergy/AdvReac Type Severity Reaction Status Date / Time No Known Drug Allergies Allergy Verified 01/21/19 17:10 Review of Systems Constitutional Denies fever(s) Cardiovascular Denies chest pain and Denies dyspnea Respiratory Denies dyspnea Gastrointestinal Gastrointestinal: Reports abdominal pain, Denies change in stool character, Reports nausea and Reports vomiting Genitourinary Denies dysuria Musculoskeletal Denies back pain Integumentary/Breasts Denies new lesions and Denies rash Neurologic Denies behavioral changes Psychiatric Denies behavioral changes Hematologic/Lymphatic Denies easy bleeding and Denies easy bruising Allergic/Immunologic Denies urticaria [facility] Medical History Absence, lung lobe (Acute) Cataract (Acute) Cervical spine fracture (Acute) Chronic constipation (Acute) Hyperlipidemia (Acute) Hypertension (Acute) 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) Retinopathy (Acute) Thoracic compression fracture (Acute) Type 1 diabetes (Acute) Social History household members: none Smoking Status: Former smoker alcohol intake: never Social History household members: none Smoking Status: Former smoker alcohol intake: never Exam Initial Vital Signs Initial Vital Signs: Vital Signs Temperature 98.8 F 01/25/19 02:54 Pulse Rate 85 01/25/19 02:54 Respiratory Rate 16 01/25/19 02:54 Blood Pressure 140/61 01/25/19 02:54 Pulse Oximetry 100 01/25/19 02:54 Const General: cooperative and disheveled Orientation: alert, awake and oriented x3 HENMT Head: normal to inspection and normocephalic Resp Effort & Inspection: normal respiratory effort Auscultation: clear to auscultation bilaterally Cardio Rate: regular rate Rhythm: regular rhythm Pulses: radial pulses present GI Inspection: non-distended Palpation: soft, No firm and tender (Diffusely tender) Skin Lesions: no lesions Rashes: no rashes Neuro General: alert, awake and oriented x3 Cognition: normal cognition Speech: speech normal Sensory Exam: no sensory deficits noted Extrem General: normal to inspection and capillary refill normal Course Orders Ordered: ED Orders 01/25/19 03:00 Complete Blood Count AUTO DIFF Stat Comprehensive Metabolic Panel Stat Lipase Stat Discontinued Medications Hydromorphone HCl (Dilaudid) 1 mg IV NOW ONE Stop: 01/25/19 02:53 Last Admin: 01/25/19 03:19 Dose: 1 mg Sodium Chloride (Normal Saline 0.9%) 1,000 mls @ 1,000 mls/hr IV BOLUS ONE Stop: 01/25/19 03:51 Last Admin: 01/25/19 03:19 Dose: 1,000 mls/hr Ondansetron HCl (Zofran) 4 mg IV NOW ONE Stop: 01/25/19 02:53 Last Admin: 01/25/19 03:20 Dose: 4 mg Pantoprazole Sodium (Protonix) 40 mg IV NOW ONE Stop: 01/25/19 02:53 Last Admin: 01/25/19 03:19 Dose: 40 mg Vital Signs - 8 hr 01/25/19 02:54 Temperature 98.8 F Pulse Rate 85 Respiratory Rate 16 Blood Pressure 140/61 Pulse Oximetry 100 MDM - Abdominal Pain Lab Data Attestation: I reviewed the patient's lab results. Result diagrams: 01/25/19 03:00 01/25/19 03:00 Lab Results 01/25/19 01/25/19 Range/Units 03:00 03:00 WBC 17.2 H (4.5-11.0) X10^3/uL RBC 4.43 L (4.5-5.9) X10^6/uL Hgb 14.0 (13.5-17.5) g/dL Hct 41.4 (41-53) % MCV 93.5 (80-100) fL MCH 31.6 (26-34) PG MCHC 33.8 (30-36) % RDW 13.3 (11.6-14.8) % Plt Count 188 (150-400) X10^3/uL Neut % (Auto) 82.1 H (50-75) % Lymph % (Auto) 4.7 L (25-40) % Loving % (Auto) 12.9 (3-14) % Eos % (Auto) 0.0 L (2-4) % Baso % (Auto) 0.3 (0-2) % Neut # (Auto) 38823 H (2430-5645) /uL Lymph # (Auto) 800 L (2016-4441) /uL Loving # (Auto) 2200 H (0-900) /uL Eos # (Auto) 0 (0-450) /uL Baso # (Auto) 100 (0-100) /uL Sodium 141 (137-145) mmol/L Potassium 3.5 (3.4-5.1) mmol/L Chloride 98 (98-107) mmol/L Carbon Dioxide 25 (22-32) mmol/L BUN 17 (9-20) mg/dL Creatinine 1.10 (0.66-1.25) mg/dL Estimated GFR > 60.0 (>60) mL/min BUN/Creatinine Ratio 15.5 (6-22) Glucose 202 H (70-100) mg/dL Calcium 9.4 (8.4-10.2) mg/dL Total Bilirubin 1.0 (0.2-1.3) mg/dL AST 36 (17-59) IU/L ALT 49 (21-72) IU/L Alkaline Phosphatase 63 (38-126) U/L Total Protein 7.4 (6.3-8.2) g/dL Albumin 4.5 (3.5-5.0) g/dL Globulin 2.9 (1.7-4.1) g/dL Albumin/Globulin Ratio 1.6 (1.0-2.8) Lipase < 10 L (23-300) U/L MDM Narrative Medical decision making narrative: Patient received pain medications, nausea medicine and Protonix. He stated that he feels much better after these medications. He does have a leukocytosis however I feel that this is secondary to demargination from vomiting. He does have abdominal pain but is the same abdominal pain that he had several days ago when he was admitted to the hospital. She has no other signs of infection. He does not have an acute abdomen and do not feel that any to do a CT scan of his abdomen today secondary to his physical exam. Denies any chest pain. He does have Reglan at home. He does have pain medication at home. I will send him home with a prescription for Zantac. He was informed that he needs to continue to take his blood sugars and use his insulin. He was given return precautions and follow-up instructions. He expressed understanding and agreement plan Discharge Plan Departure Patient Disposition: Home Clinical Impression: Abdominal pain Qualifiers: Abdominal location: generalized Qualified Code(s): R10.84 - Generalized abdominal pain Vomiting Qualifiers: Vomiting type: unspecified Vomiting Intractability: non-intractable Nausea presence: with nausea Qualified Code(s): R11.2 - Nausea with vomiting, unspecified Diabetes Qualifiers: Diabetes mellitus type: type 1 Diabetes mellitus complication status: with other specified complication Qualified Code(s): E10.69 - Type 1 diabetes mellitus with other specified complication Instructions: DI for Gastroparesis Activity Restrictions/Additional Instructions: Continue to take your blood sugars at home and use your medications as directed. You do need to contact her primary provider tomorrow for a follow-up. Prescriptions: New ranitidine HCl [Zantac] 150 mg tablet 150 mg PO BID Qty: 60 RF: 0 No Action Novolog Flexpen U-100 Insulin 100 unit/mL (3 mL) Insulin Pen SQ * [place] DOSE/FREQUENCY Qty: 0 RF: 0 LISINOPRIL (Zestril / Prinivil) PO *[place] DOSE/FREQUENCY Qty: 0 RF: 0 rosuvastatin 10 mg Tablet 10 mg PO DAILY Qty: 0 RF: 0 Lantus U-100 Insulin 100 unit/mL Solution 29 unit SUBCUT DAILY RF: 0 oxycodone 5 mg Tablet 5 mg PO Q4-6H PRN (Reason: Pain (Scale Score 7-10)) RF: 0 Lyrica 150 mg Capsule 150 mg PO BID RF: 0 metoclopramide HCl [Reglan] 10 mg tablet 10 mg PO QAC Qty: 30 RF: 0 Referrals: Gray Chahal MD [Primary Care Provider] -
[2019-01-25 02:54] VITALS: BP 140/61; PULSE 85; RESP 16; TEMP 37.1; O2SAT 100; BMI 20.9
[2019-01-25 03:17] LABS: Add Manual Diff / Slide Review NO; Basophils Absolute Auto 100 /uL (0-100); Basophils Percent Auto 0.3 % (0-2); Eosinophils Absolute Auto 0 /uL (0-450); Hematocrit 41.4 % (41-53); Lymphocytes Absolute Auto 800 /uL (1100-4500); Lymphocytes Percent Auto 4.7 % (25-40); Mean Corpuscular HGB Conc 33.8 % (30-36); Mean Corpuscular Hemoglobin 31.6 PG (26-34); Mean Corpuscular Volume 93.5 fL (80-100); Monocytes Absolute Auto 2200 /uL (0-900); Monocytes Percent Auto 12.9 % (3-14); Neutrophils Absolute Auto 14100 /uL (1500-7000); Neutrophils Percent Auto 82.1 % (50-75); Platelet Count 188 X10^3/uL (150-400); Red Blood Cell Count 4.43 X10^6/uL (4.5-5.9); Red Cell Distribution Width 13.3 % (11.6-14.8); White Blood Cell Count 17.2 X10^3/uL (4.5-11.0)
[2019-01-25] MEDS: SODIUM CHLORIDE 0.9% 1,000 ML 1000 ML IV (03:19)
[2019-01-25] MEDS: HYDROMORPHONE 1 MG INJ IV (03:19)
[2019-01-25] MEDS: PANTOPRAZOLE 40 MG VIAL IV (03:19)
[2019-01-25] MEDS: ONDANSETRON 4 MG/2 ML INJ IV (03:20)
[2019-01-25 03:27] LABS: Alanine Aminotransferase 49 IU/L (21-72); Albumin 4.5 g/dL (3.5-5.0); Albumin Globulin Ratio 1.6 (1.0-2.8); Alkaline Phosphatase 63 U/L (38-126); Aspartate Aminotransferase 36 IU/L (17-59); BUN Creatinine Ratio 15.5 (6-22); Blood Urea Nitrogen 17 mg/dL (9-20); Calcium 9.4 mg/dL (8.4-10.2); Carbon Dioxide 25 mmol/L (22-32); Chloride 98 mmol/L (98-107); Estimated Glomerular Filt Rate > 60.0 mL/min (>60); Globulin 2.9 g/dL (1.7-4.1); Glucose 202 mg/dL (70-100); HEMOLYSIS < 15 (0-50); Lipase < 10 U/L (23-300); Potassium 3.5 mmol/L (3.4-5.1); Sodium 141 mmol/L (137-145); Total Protein 7.4 g/dL (6.3-8.2)
[2019-01-25 04:30] VITALS: BP 131/60; PULSE 73; RESP 14; O2SAT 100
== END 2019-01-25 04:30 | disposition home or self-care (01) ==
PROVIDERS: Emergency Provider Emergency Medicine; PCP Internal Medicine
DX: R10.84 Generalized abdominal pain (principal); R11.2 Nausea with vomiting, unspecified; E10.69 Type 1 diabetes mellitus with other specified complication
CPT/HCPCS: 36591; 80053; 83690; 85025; 96361; 96374; 96375; 99283; 99284; C9113; J1170; J2405

== ENCOUNTER → 2019-09-07 13:10 | Outpatient (CLI) | payer MEDICARE, MEDICAID, SELFPAY ==
[2019-01-21 21:50] VITALS: BMI 20.2
[2019-09-07 14:32] LABS: Hemoglobin A1C% w Est Avg Glu 7.4 % (4.0-6.0)
== END ==
PROVIDERS: PCP Internal Medicine; Referring Provider Internal Medicine; Visit Provider Internal Medicine
DX: G62.9 Polyneuropathy, unspecified (principal); E10.65 Type 1 diabetes mellitus with hyperglycemia; G89.4 Chronic pain syndrome
CPT/HCPCS: 36415; 83036

== ENCOUNTER → 2020-02-28 17:30 | Outpatient (CLI) | payer MEDICARE, MEDICAID, SELFPAY ==
[2019-01-21 21:50] VITALS: BMI 20.2
[2020-02-28 19:23] LABS: Hemoglobin A1C% w Est Avg Glu 7.4 % (4.0-6.0)
== END ==
PROVIDERS: PCP Internal Medicine; Referring Provider Internal Medicine; Visit Provider Internal Medicine
DX: E10.43 Type 1 diabetes mellitus with diabetic autonomic (poly)neuropathy (principal)
CPT/HCPCS: 36415; 83036

== ENCOUNTER → 2020-12-18 12:01 | Outpatient (CLI) | payer MEDICARE, MEDICAID, SELFPAY ==
[2019-01-21 21:50] VITALS: BMI 20.2
[2020-12-18 13:30] LABS: BUN Creatinine Ratio 12.6 (6-22); Blood Urea Nitrogen 11 mg/dL (9-20); Calcium 9.9 mg/dL (8.4-10.2); Carbon Dioxide 24 mmol/L (22-32); Chloride 98 mmol/L (98-107); Estimated Glomerular Filt Rate > 60.0 mL/min (>60); Glucose 90 mg/dL (70-100); Sodium 131 mmol/L (137-145)
[2020-12-18 13:35] LABS: HEMOLYSIS 61 (0-50)
[2020-12-18 13:36] LABS: Potassium 4.5 mmol/L (3.4-5.1)
[2020-12-19 03:04] LABS: Creatinine Urine Random 120.4 mg/dL
[2020-12-19 03:13] LABS: Microalbumi Creatinin Ratio Ur 58.1 ug/mg CR (<30)
== END ==
PROVIDERS: PCP Internal Medicine; Referring Provider Internal Medicine; Visit Provider Internal Medicine
DX: E10.65 Type 1 diabetes mellitus with hyperglycemia (principal)
CPT/HCPCS: 36415; 80048; 82043; 82570

== ENCOUNTER 2021-01-09 11:56 | Emergency (ER) | payer MEDICARE, MEDICAID, SELFPAY ==
[2019-01-21 21:50] VITALS: BMI 20.2
[2021-01-09 12:25] VITALS: BP 132/69; PULSE 97; RESP 12; TEMP 36.7; O2SAT 99; BMI 20.9
== END 2021-01-09 15:36 | disposition left against medical advice (07) ==
PROVIDERS: Emergency Provider Emergency Medicine; PCP Internal Medicine
CPT/HCPCS: 99281

== ENCOUNTER → 2021-03-20 16:06 | Outpatient (CLI) | payer OTHER, SELFPAY ==
[2019-01-21 21:50] VITALS: BMI 20.2
[2021-03-20 17:14] LABS: Alanine Aminotransferase 64 IU/L (<50); Albumin 4.1 g/dL (3.5-5.0); Albumin Globulin Ratio 1.6 (1.0-2.8); Alkaline Phosphatase 48 U/L (38-126); Aspartate Aminotransferase 61 IU/L (17-59); BUN Creatinine Ratio 16.3 (6-22); Bilirubin Total 0.3 mg/dL (0.2-1.3); Blood Urea Nitrogen 21 mg/dL (9-20); Carbon Dioxide 28 mmol/L (22-32); Chloride 104 mmol/L (98-107); Estimated Glomerular Filt Rate 58.7 mL/min (>60); Globulin 2.5 g/dL (1.7-4.1); Glucose 153 mg/dL (70-100); HEMOLYSIS < 15 (0-50); Potassium 4.3 mmol/L (3.4-5.1); Sodium 137 mmol/L (137-145); Total Protein 6.6 g/dL (6.3-8.2)
[2021-03-20 17:17] LABS: Creatinine Urine Random 133.8 mg/dL
[2021-03-20 17:20] LABS: Hemoglobin A1C% w Est Avg Glu 6.6 % (4.0-6.0)
[2021-03-20 17:23] LABS: Microalbumi Creatinin Ratio Ur 23.9 ug/mg CR (<30); Microalbumin Urine Random 3.2 mg/dL (0-1.6)
[2021-03-20 17:45] LABS: TSH w/ Reflex to FT4 0.52 uIU/mL (0.47-4.68)
== END ==
PROVIDERS: PCP Internal Medicine; Referring Provider Nurse Practitioner Family; Visit Provider Nurse Practitioner Family
DX: E10.42 Type 1 diabetes mellitus with diabetic polyneuropathy (principal)
CPT/HCPCS: 36415; 80053; 82043; 82570; 83036; 84443

== ENCOUNTER → 2021-03-21 11:38 | Outpatient (CLI) | payer OTHER, SELFPAY ==
[2019-01-21 21:50] VITALS: BMI 20.2
[2021-03-21 13:11] LABS: Cholesterol 129 mg/dL (140-199); HDL Cholesterol 62 mg/dL (40-60); LDL Cholesterol Calculated 45 mg/dL (<100); Triglycerides 108 mg/dL (35-150)
== END ==
PROVIDERS: PCP Internal Medicine; Referring Provider Internal Medicine; Visit Provider Internal Medicine
DX: E10.42 Type 1 diabetes mellitus with diabetic polyneuropathy (principal)
CPT/HCPCS: 36415; 80061

== ENCOUNTER → 2021-12-08 17:21 | Outpatient (CLI) | payer MEDICARE, MEDICAID, SELFPAY ==
[2019-01-21 21:50] VITALS: BMI 20.2
[2021-12-08 18:19] LABS: Alanine Aminotransferase 46 IU/L (<50); Albumin 4.4 g/dL (3.5-5.0); Albumin Globulin Ratio 1.5 (1.0-2.8); Alkaline Phosphatase 52 U/L (38-126); Aspartate Aminotransferase 45 IU/L (17-59); BUN Creatinine Ratio 10.5 (6-22); Bilirubin Total 0.4 mg/dL (0.2-1.3); Blood Urea Nitrogen 13 mg/dL (9-20); Calcium 9.3 mg/dL (8.4-10.2); Carbon Dioxide 33 mmol/L (22-32); Chloride 97 mmol/L (98-107); Cholesterol 136 mg/dL (140-199); Estimated Glomerular Filt Rate > 60 mL/min (>60); Globulin 2.9 g/dL (1.7-4.1); Glucose 125 mg/dL (70-100); HDL Cholesterol 51 mg/dL (40-60); HEMOLYSIS < 15 (0-50); LDL Cholesterol Calculated 68 mg/dL (<100); Phosphorous 3.6 mg/dL (2.5-4.5); Potassium 4.8 mmol/L (3.4-5.1); Sodium 136 mmol/L (137-145); Total Protein 7.3 g/dL (6.3-8.2); Triglycerides 85 mg/dL (35-150)
[2021-12-08 19:05] LABS: Creatinine Urine Random 116.8 mg/dL
[2021-12-08 19:10] LABS: Microalbumi Creatinin Ratio Ur 25.6 ug/mg CR (<30)
[2021-12-09 04:36] LABS: Hepatitis B Core AB w/Reflex Negative (Negative); Hepatitis B Surf AB Quant <3.1 mIU/mL (Immunity>9.9)
[2021-12-10 17:07] LABS: Hep C Virus Ab w/Reflex Quant NEGATIVE s/c (NEGATIVE)
== END ==
PROVIDERS: PCP Family Medicine; Referring Provider Student in an Organized Health Care Education/Training Program; Visit Provider Student in an Organized Health Care Education/Training Program
DX: E10.42 Type 1 diabetes mellitus with diabetic polyneuropathy (principal)
CPT/HCPCS: 36415; 80053; 80061; 80069; 82043; 82570; 86704; 86706; 86803

== ENCOUNTER → 2022-08-16 14:00 | Outpatient (CLI) | payer MEDICARE, MEDICAID, SELFPAY ==
[2019-01-21 21:50] VITALS: BMI 20.2
[2022-08-16 16:19] LABS: Free T4, Direct Thyroxine 0.69 ng/dL (0.78-2.19)
[2022-08-16 16:33] LABS: Thyroid Stimulating Hormone 0.296 uIU/mL (0.47-4.68)
== END ==
PROVIDERS: PCP Family Medicine; Referring Provider Student in an Organized Health Care Education/Training Program; Visit Provider Student in an Organized Health Care Education/Training Program
DX: E10.42 Type 1 diabetes mellitus with diabetic polyneuropathy (principal)
CPT/HCPCS: 36415; 84439; 84443

== ENCOUNTER → 2022-10-27 14:31 | Outpatient (CLI) | payer MEDICARE, MEDICAID, SELFPAY ==
[2019-01-21 21:50] VITALS: BMI 20.2
[2022-10-27 15:54] LABS: Lipase 37 U/L (23-300)
[2022-10-27 15:58] LABS: Alanine Aminotransferase 49 IU/L (<50); Albumin 4.3 g/dL (3.5-5.0); Albumin Globulin Ratio 1.3 (1.0-2.8); Alkaline Phosphatase 67 U/L (38-126); Aspartate Aminotransferase 42 IU/L (17-59); BUN Creatinine Ratio 10.6 (6-22); Bilirubin Total 0.4 mg/dL (0.2-1.3); Blood Urea Nitrogen 14 mg/dL (9-20); Calcium 9.5 mg/dL (8.4-10.2); Carbon Dioxide 30 mmol/L (22-32); Chloride 98 mmol/L (98-107); Cholesterol 136 mg/dL (140-199); Estimated Glomerular Filt Rate > 60 mL/min (>60); Globulin 3.3 g/dL (1.7-4.1); Glucose 152 mg/dL (70-100); HDL Cholesterol 51 mg/dL (40-60); HEMOLYSIS < 15 (0-50); LDL Cholesterol Calculated 67 mg/dL (<100); Potassium 4.3 mmol/L (3.4-5.1); Sodium 136 mmol/L (137-145); Total Protein 7.6 g/dL (6.3-8.2); Triglycerides 90 mg/dL (35-150)
[2022-10-27 16:09] LABS: Free T3, Triiodothyronine Free 3.25 pg/mL (2.77-5.27); Free T4, Direct Thyroxine 0.69 ng/dL (0.78-2.19)
[2022-10-27 16:23] LABS: Thyroid Stimulating Hormone 0.442 uIU/mL (0.47-4.68)
[2022-10-28 11:01] LABS: x Labcorp Estim. Avg Glu (eAG) 137 mg/dL (.); x Labcorp Hemoglobin A1c 6.4 % (4.8-5.6)
[2022-10-29 19:30] LABS: Thyroid Stimulating Immunoglob < 0.10 IU/L (0.00-0.55)
== END ==
PROVIDERS: PCP Family Medicine; Referring Provider Student in an Organized Health Care Education/Training Program; Visit Provider Student in an Organized Health Care Education/Training Program
DX: E10.43 Type 1 diabetes mellitus with diabetic autonomic (poly)neuropathy (principal); E78.5 Hyperlipidemia, unspecified; R19.5 Other fecal abnormalities; R73.9 Hyperglycemia, unspecified
CPT/HCPCS: 36415; 80053; 80061; 83036; 83690; 84439; 84443; 84445; 84481

== ENCOUNTER → 2023-02-09 15:37 | Outpatient (CLI) | payer MEDICARE, MEDICAID, SELFPAY ==
[2019-01-21 21:50] VITALS: BMI 20.2
[2023-02-09 17:37] LABS: Creatinine Urine Random 81.5 mg/dL
[2023-02-09 17:42] LABS: Microalbumi Creatinin Ratio Ur 8.5 ug/mg CR (<30); Microalbumin Urine Random 0.7 mg/dL (0-1.6)
[2023-02-09 17:54] LABS: Free T4, Direct Thyroxine 0.63 ng/dL (0.78-2.19)
[2023-02-09 18:08] LABS: Thyroid Stimulating Hormone 1.17 uIU/mL (0.47-4.68)
== END ==
PROVIDERS: PCP Family Medicine; Referring Provider Student in an Organized Health Care Education/Training Program; Visit Provider Student in an Organized Health Care Education/Training Program
DX: E10.42 Type 1 diabetes mellitus with diabetic polyneuropathy (principal)
CPT/HCPCS: 36415; 82043; 82570; 84439; 84443

== ENCOUNTER → 2023-08-15 14:57 | Outpatient (CLI) | payer MEDICARE, MEDICAID, SELFPAY ==
[2019-01-21 21:50] VITALS: BMI 20.2
[2023-08-15 17:10] LABS: Free T3, Triiodothyronine Free 3.03 pg/mL (2.77-5.27)
[2023-08-15 17:23] LABS: TSH w/ Reflex to FT4 1.41 uIU/mL (0.47-4.68)
[2023-08-17 18:46] LABS: Thyroid Stimulating Immunoglob < 0.10 IU/L (0.00-0.55)
== END ==
LOC: LAB 15:15
PROVIDERS: PCP Family Medicine; Referring Provider Student in an Organized Health Care Education/Training Program; Visit Provider Student in an Organized Health Care Education/Training Program
DX: R94.6 Abnormal results of thyroid function studies (principal); E10.42 Type 1 diabetes mellitus with diabetic polyneuropathy
CPT/HCPCS: 36415; 84443; 84445; 84481

== ENCOUNTER → 2024-01-16 15:21 | Outpatient (CLI) | payer MEDICARE, MEDICAID, SELFPAY ==
[2019-01-21 21:50] VITALS: BMI 20.2
[2024-01-16 17:49] LABS: Add Manual Diff / Slide Review NO; Basophils Absolute Auto 0 /uL (0-100); Basophils Percent Auto 0.6 % (0-2); Eosinophils Absolute Auto 100 /uL (0-450); Eosinophils Percent Auto 1.9 % (2-4); Hematocrit 41.3 % (41-53); Hemoglobin 13.7 g/dL (13.5-17.5); Lymphocytes Absolute Auto 1300 /uL (1100-4500); Lymphocytes Percent Auto 21.8 % (25-40); Mean Corpuscular HGB Conc 33.3 % (30-36); Mean Corpuscular Hemoglobin 29.9 PG (26-34); Mean Corpuscular Volume 89.9 fL (80-100); Monocytes Absolute Auto 500 /uL (0-900); Neutrophils Absolute Auto 4000 /uL (1500-7000); Neutrophils Percent Auto 67.7 % (50-75); Platelet Count 212 X10^3/uL (150-400); Red Blood Cell Count 4.59 X10^6/uL (4.5-5.9); Red Cell Distribution Width 14.8 % (11.6-14.8)
[2024-01-16 18:09] LABS: Creatinine Urine Random 116.78 mg/dL
[2024-01-16 18:15] LABS: Microalbumin Urine Random 1.1 mg/dL (0-1.6)
[2024-01-16 18:21] LABS: Alanine Aminotransferase 47 IU/L (<50); Albumin 4.3 g/dL (3.5-5.0); Albumin Globulin Ratio 1.4 (1.0-2.8); Alkaline Phosphatase 63 U/L (38-126); Aspartate Aminotransferase 45 IU/L (17-59); BUN Creatinine Ratio 8.8 (6-22); Bilirubin Total 0.5 mg/dL (0.2-1.3); Blood Urea Nitrogen 15 mg/dL (9-20); Calcium 9.2 mg/dL (8.4-10.2); Carbon Dioxide 30 mmol/L (22-32); Chloride 103 mmol/L (98-107); Cholesterol 141 mg/dL (140-199); Estimated Glomerular Filt Rate 47 mL/min (>60); Glucose 134 mg/dL (70-100); HDL Cholesterol 59 mg/dL (40-60); HEMOLYSIS < 15 (0-50); LDL Cholesterol Calculated 58 mg/dL (<100); Sodium 139 mmol/L (137-145); Total Protein 7.3 g/dL (6.3-8.2); Triglycerides 119 mg/dL (35-150)
[2024-01-16 18:51] LABS: Prostate Specific Antigen Scrn 0.392 ng/mL (0.1-4.0)
[2024-01-16 18:53] LABS: TSH w/ Reflex to FT4 2.21 uIU/mL (0.47-4.68)
== END ==
PROVIDERS: PCP Family Medicine; Referring Provider Family Medicine; Visit Provider Family Medicine
DX: E78.5 Hyperlipidemia, unspecified (principal); E10.3593 Type 1 diabetes mellitus with proliferative diabetic retinopathy without macular edema, bilateral; Z12.5 Encounter for screening for malignant neoplasm of prostate; E10.65 Type 1 diabetes mellitus with hyperglycemia; I10 Essential (primary) hypertension; F11.20 Opioid dependence, uncomplicated; D84.81 Immunodeficiency due to conditions classified elsewhere; Z79.4 Long term (current) use of insulin; E10.69 Type 1 diabetes mellitus with other specified complication
CPT/HCPCS: 36415; 80053; 80061; 82043; 82172; 82570; 84443; 85025; G0103

== ENCOUNTER → 2024-04-09 13:24 | Outpatient (CLI) | payer MEDICARE, MEDICAID, SELFPAY ==
[2019-01-21 21:50] VITALS: BMI 20.2
[2024-04-09 16:43] LABS: Alanine Aminotransferase 40 IU/L (<50); Albumin 4.1 g/dL (3.5-5.0); Albumin Globulin Ratio 1.3 (1.0-2.8); Alkaline Phosphatase 55 U/L (38-126); Aspartate Aminotransferase 42 IU/L (17-59); Bilirubin Total 0.8 mg/dL (0.2-1.3); Blood Urea Nitrogen 17 mg/dL (9-20); Calcium 9.4 mg/dL (8.4-10.2); Carbon Dioxide 24 mmol/L (22-32); Chloride 103 mmol/L (98-107); Estimated Glomerular Filt Rate > 60 mL/min (>60); Globulin 3.2 g/dL (1.7-4.1); Glucose 112 mg/dL (70-100); HEMOLYSIS 37 (0-50); Potassium 4.1 mmol/L (3.4-5.1); Sodium 135 mmol/L (137-145); Total Protein 7.3 g/dL (6.3-8.2)
== END ==
LOC: LAB 13:26
PROVIDERS: PCP Family Medicine; Referring Provider Family Medicine; Visit Provider Family Medicine
DX: E10.42 Type 1 diabetes mellitus with diabetic polyneuropathy (principal)
CPT/HCPCS: 36415; 80053

== ENCOUNTER → 2024-10-19 13:34 | Outpatient (CLI) | payer MEDICARE, MEDICAID, SELFPAY ==
[2019-01-21 21:50] VITALS: BMI 20.2
[2024-10-19 14:18] LABS: Albumin 4.5 g/dL (3.5-5.0); Blood Urea Nitrogen 15 mg/dL (9-20); Calcium 9.8 mg/dL (8.4-10.2); Carbon Dioxide 28 mmol/L (22-32); Chloride 94 mmol/L (98-107); Cholesterol 151 mg/dL (140-199); Estimated Glomerular Filt Rate > 60 mL/min (>60); Glucose 119 mg/dL (70-100); HDL Cholesterol 51 mg/dL (40-60); HEMOLYSIS < 15 (0-50); LDL Cholesterol Calculated 73 mg/dL (<100); Phosphorous 3.2 mg/dL (2.5-4.5); Potassium 4.4 mmol/L (3.4-5.1); Sodium 130 mmol/L (137-145); Triglycerides 135 mg/dL (35-150)
== END ==
PROVIDERS: PCP Family Medicine; Referring Provider Student in an Organized Health Care Education/Training Program; Visit Provider Student in an Organized Health Care Education/Training Program
DX: E10.42 Type 1 diabetes mellitus with diabetic polyneuropathy (principal)
CPT/HCPCS: 36415; 80061; 80069

== ENCOUNTER → 2025-01-03 14:30 | Outpatient (CLI) | payer MEDICARE, MEDICAID, SELFPAY ==
[2019-01-21 21:50] VITALS: BMI 20.2
[2025-01-03 15:51] LABS: Hemoglobin A1C% w Est Avg Glu 6.8 % (4.0-6.0)
[2025-01-03 15:59] LABS: Albumin 4.4 g/dL (3.5-5.0); BUN Creatinine Ratio 12.7 (6-22); Blood Urea Nitrogen 16 mg/dL (9-20); Calcium 9.3 mg/dL (8.4-10.2); Carbon Dioxide 27 mmol/L (22-32); Chloride 100 mmol/L (98-107); Estimated Glomerular Filt Rate > 60 mL/min (>60); Glucose 109 mg/dL (70-99); HEMOLYSIS < 15 (0-50); Phosphorous 4.1 mg/dL (2.5-4.5); Potassium 4.7 mmol/L (3.4-5.1); Sodium 135 mmol/L (137-145)
== END ==
PROVIDERS: PCP Family Medicine; Referring Provider Student in an Organized Health Care Education/Training Program; Visit Provider Student in an Organized Health Care Education/Training Program
DX: E10.42 Type 1 diabetes mellitus with diabetic polyneuropathy (principal); E10.69 Type 1 diabetes mellitus with other specified complication
CPT/HCPCS: 36415; 80069; 83036